=== PATIENT | female | born 1985 | race Caucasian/White ===

== ENCOUNTER 2017-01-31 19:19 | Emergency (ER) | payer OTHER ==
[~2017-01-31] VITALS: Ht 167.6 cm; Wt 63.6 kg
[2017-01-31] MEDS ORDERED: IBUPROFEN 600 MG TABLET PO ONE (20:00)
[2017-01-31 20:37] VITALS: BP 110/64
== END 2017-01-31 21:05 | disposition home or self-care (01) ==
LOC: EMS 19:20
DX: S82.141A Displaced bicondylar fracture of right tibia, initial encounter for closed fracture (principal); F17.210 Nicotine dependence, cigarettes, uncomplicated; F12.90 Cannabis use, unspecified, uncomplicated; F19.90 Other psychoactive substance use, unspecified, uncomplicated; Y04.2XXA Assault by strike against or bumped into by another person, initial encounter; Y93.89 Activity, other specified; Y92.89 Other specified places as the place of occurrence of the external cause; Y99.8 Other external cause status
CPT/HCPCS: 29505; 99284

== ENCOUNTER 2017-02-01 08:10 | Emergency (ER) | payer OTHER ==
[~2017-02-01] VITALS: Ht 162.6 cm; Wt 54.5 kg
[2017-02-01 08:56] LABS: ANION GAP 4 mmol/L (8-16); CALCIUM, TOTAL 8.7 mg/dL (8.8-10.5); CARBON DIOXIDE 29 mmol/L (22-29); CHLORIDE 104 mmol/L (98-107); CREATININE 0.76 mg/dL (0.60-1.30); GLOMERULAR FILTR. RATE CALC > 60 mL/min (>60); POTASSIUM 3.6 mmol/L (3.5-5.1); SODIUM SERUM 137 mmol/L (136-145); UREA NITROGEN, BLOOD 17 mg/dL (7-18)
[2017-02-01 09:03] LABS: ALANINE AMINOTRANSFERASE 23 U/L (12-78); ALBUMIN 3.6 g/dL (3.4-5.0); ASPARTATE AMINOTRANSFERASE 31 U/L (15-37); BILIRUBIN,TOTAL 0.4 mg/dL (0.1-1.0); TOTAL PROTEIN, SERUM 7.2 g/dL (6.4-8.2)
[2017-02-01 09:07] LABS: BASOPHILS % (AUTO) 0.9 % (0.0-2.0); EOSINOPHILS % (AUTO) 2.5 % (1.0-6.0); HEMOGLOBIN 13.5 g/dL (12.0-16.0); LYMPHOCYTES # (AUTO) 1.8 K/uL (1.0-4.8); LYMPHOCYTES % (AUTO) 30.7 % (22.0-44.0); MEAN CORPUSCULAR HEMOGLOBIN 29.7 pg (26.0-34.0); MEAN CORPUSCULAR HGB CONC 33.7 G/dL (31.0-37.0); MEAN CORPUSCULAR VOLUME 88 fL (80-100); MONOCYTES # (AUTO) 0.5 K/uL (0.1-1.0); MONOCYTES % (AUTO) 8.9 % (2.0-9.0); NEUTROPHILS # (AUTO) 3.3 K/uL (1.8-7.7); PLATELET COUNT (AUTO) 342 K/uL (150-450); RED BLOOD CELL COUNT(AUTO) 4.53 MIL/uL (4.00-5.20); RED CELL DISTRIBUTION WIDTH 13.5 % (11.5-14.5); WHITE BLOOD COUNT (AUTO) 5.7 K/uL (4.5-11.0)
[2017-02-01 11:57] VITALS: BP 120/71
[2017-02-01] MEDS ORDERED: HALOPERIDOL 5 MG TABLET PO ONE (12:00)
== END 2017-02-01 12:05 | disposition home or self-care (01) ==
LOC: EMS 08:11
DX: F20.9 Schizophrenia, unspecified (principal); F12.90 Cannabis use, unspecified, uncomplicated; F17.210 Nicotine dependence, cigarettes, uncomplicated; F19.90 Other psychoactive substance use, unspecified, uncomplicated
CPT/HCPCS: 36415; 80053; 80307; 84703; 85025; 99284; 99406; G0480

== ENCOUNTER 2017-02-03 15:40 | Emergency (ER) | payer MEDICAID ==
[~2017-02-03] VITALS: Ht 160 cm; Wt 66.0 kg
[2017-02-03] MEDS ORDERED: IBUP-1506 PO (16:28)
[2017-02-03] MEDS ORDERED: HALO1 PO (16:43)
[2017-02-03 17:10] LABS: BASOPHILS % (AUTO) 1.2 % (0.0-2.0); EOSINOPHILS % (AUTO) 1.2 % (1.0-6.0); HEMATOCRIT 40.7 % (36-46); HEMOGLOBIN 13.8 g/dL (12.0-16.0); LYMPHOCYTES # (AUTO) 2.2 K/uL (1.0-4.8); LYMPHOCYTES % (AUTO) 25.3 % (22.0-44.0); MEAN CORPUSCULAR HGB CONC 33.9 G/dL (31.0-37.0); MEAN CORPUSCULAR VOLUME 88 fL (80-100); MONOCYTES # (AUTO) 0.6 K/uL (0.1-1.0); MONOCYTES % (AUTO) 6.4 % (2.0-9.0); NEUTROPHILS # (AUTO) 5.8 K/uL (1.8-7.7); NEUTROPHILS % (AUTO) 65.9 % (40.0-70.0); PLATELET COUNT (AUTO) 363 K/uL (150-450); RED BLOOD CELL COUNT(AUTO) 4.61 MIL/uL (4.00-5.20); RED CELL DISTRIBUTION WIDTH 13.5 % (11.5-14.5); WHITE BLOOD COUNT (AUTO) 8.7 K/uL (4.5-11.0)
[2017-02-03 17:24] LABS: ANION GAP 5 mmol/L (8-16); CALCIUM, TOTAL 8.6 mg/dL (8.8-10.5); CARBON DIOXIDE 29 mmol/L (22-29); CHLORIDE 104 mmol/L (98-107); CREATININE 0.78 mg/dL (0.60-1.30); GLOMERULAR FILTR. RATE CALC > 60 mL/min (>60); SODIUM SERUM 138 mmol/L (136-145); UREA NITROGEN, BLOOD 17 mg/dL (7-18)
[2017-02-03 17:37] LABS: ALANINE AMINOTRANSFERASE 22 U/L (12-78); ALBUMIN 3.7 g/dL (3.4-5.0); ASPARTATE AMINOTRANSFERASE 17 U/L (15-37); BILIRUBIN,TOTAL 0.2 mg/dL (0.1-1.0); THYROID STIMULATING HORMONE 0.44 uIU/mL (0.36-3.74); TOTAL PROTEIN, SERUM 7.3 g/dL (6.4-8.2)
[2017-02-03 17:39] LABS: B-TYPE NATRIURETIC PEPTIDE 6 pg/mL (0-100)
[2017-02-03 20:59] VITALS: BP 117/79
== END 2017-02-03 21:10 | disposition home or self-care (01) ==
LOC: EMS 15:43
DX: R60.0 Localized edema (principal); S82.141D Displaced bicondylar fracture of right tibia, subsequent encounter for closed fracture with routine healing; F20.9 Schizophrenia, unspecified; F31.9 Bipolar disorder, unspecified; J45.909 Unspecified asthma, uncomplicated; F12.90 Cannabis use, unspecified, uncomplicated; F15.90 Other stimulant use, unspecified, uncomplicated; F17.210 Nicotine dependence, cigarettes, uncomplicated; Z02.89 Encounter for other administrative examinations; X58.XXXD Exposure to other specified factors, subsequent encounter
CPT/HCPCS: 84443; 85379; 93970; 99285

== ENCOUNTER 2017-02-03 15:40 | Inpatient (IN) | payer MEDICAID ==
[~2017-02-03] VITALS: Ht 160 cm; Wt 72.6 kg
[2017-02-03 14:42] VITALS: BP 129/81
[2017-02-03] MEDS ORDERED: IBUP-1506 PO (16:28)
[2017-02-03] MEDS ORDERED: HALO1 PO (16:43)
[2017-02-03 21:50] VITALS: BP 133/84
[2017-02-03] MEDS ORDERED: HALOPERIDOL 5 MG TABLET PO PRN (22:15)
[2017-02-03] MEDS ORDERED: LORazepam 2 MG TABLET PO PRN (22:15)
[2017-02-03] MEDS ORDERED: INFLUENZA VIRUS VACCINE QVS 2017-18 (3YR+)/PF 60 MCG/0.5 ML SYRINGE IM ONE (22:45)
[2017-02-03] MEDS ORDERED: PNEUMOCOCCAL VACCINE POLYVALENT 0.5 ML VIAL [PPSV23] IM ONE (22:45)
[2017-02-04 01:45] VITALS: BP 131/83
[2017-02-04] MEDS: ZOLPIDEM TARTRATE 10 MG TABLET PO PRN ×2 (02:13→21:20)
[2017-02-04] MEDS: IBUPROFEN 400 MG TABLET PO PRN (02:13)
[2017-02-04 06:49] LABS: CHOL/HDL RATIO 3.1 (3.9-5.7)
[2017-02-04 08:30] VITALS: BP 125/65
[2017-02-04 09:10] LABS: APPEARANCE,URINE CLEAR (CLEAR); GLUCOSE, URINE (UA) NEGATIVE (NEGATIVE); KETONES,URINE NEGATIVE (NEGATIVE); LEUKOCYTE ESTERASE ,URINE NEGATIVE (NEGATIVE); OCCULT BLOOD,URINE NEGATIVE (NEGATIVE); PH,URINE 6.5 (5.0-8.0); PROTEIN,URINE NEGATIVE (NEGATIVE)
[2017-02-04 09:12] LABS: ADD UA MICROSCOPIC NO
[2017-02-04 17:02] LABS: ALANINE AMINOTRANSFERASE 21 U/L (12-78); ALBUMIN 3.3 g/dL (3.4-5.0); ANION GAP 11 mmol/L (8-16); ASPARTATE AMINOTRANSFERASE 25 U/L (15-37); BILIRUBIN,TOTAL 0.2 mg/dL (0.1-1.0); CALCIUM, TOTAL 8.5 mg/dL (8.8-10.5); CARBON DIOXIDE 23 mmol/L (22-29); CHLORIDE 103 mmol/L (98-107); CREATININE 0.82 mg/dL (0.60-1.30); GLOMERULAR FILTR. RATE CALC > 60 mL/min (>60); POTASSIUM 3.9 mmol/L (3.5-5.1); SODIUM SERUM 137 mmol/L (136-145); TOTAL PROTEIN, SERUM 6.7 g/dL (6.4-8.2); UREA NITROGEN, BLOOD 21 mg/dL (7-18)
[2017-02-04 20:00] VITALS: BP 124/67
[2017-02-04] MEDS: OLANZapine 5 MG TABLET PO SCH (20:19)
[2017-02-05 03:20] VITALS: BP 121/61
[2017-02-05] MEDS: IBUPROFEN 400 MG TABLET PO PRN (03:24)
[2017-02-05 09:59] VITALS: BP 145/94
[2017-02-05 19:14] VITALS: BP 116/78
[2017-02-05] MEDS: ZOLPIDEM TARTRATE 10 MG TABLET PO PRN (21:01)
[2017-02-05] MEDS: OLANZapine 5 MG TABLET PO SCH (21:02)
[2017-02-06 00:58] VITALS: BP 125/66
[2017-02-06] MEDS: IBUPROFEN 400 MG TABLET PO PRN (01:01)
[2017-02-06 14:10] VITALS: BP 122/78
[2017-02-06 18:56] VITALS: BP 131/75
[2017-02-06] MEDS: OLANZapine 5 MG TABLET PO SCH (20:27)
[2017-02-06] MEDS: ZOLPIDEM TARTRATE 10 MG TABLET PO PRN (20:27)
[2017-02-07 08:15] VITALS: BP 105/58
[2017-02-07 16:00] VITALS: BP 116/67
[2017-02-07] MEDS: ZOLPIDEM TARTRATE 10 MG TABLET PO PRN (20:22)
[2017-02-07] MEDS: OLANZapine 5 MG TABLET PO SCH (20:22)
[2017-02-08 08:13] VITALS: BP 97/67
[2017-02-08 20:08] VITALS: BP 118/77
[2017-02-08] MEDS: OLANZapine 5 MG TABLET PO SCH (20:31)
[2017-02-08] MEDS: ZOLPIDEM TARTRATE 10 MG TABLET PO PRN (20:31)
[2017-02-09 08:00] VITALS: BP 127/62
[2017-02-09 16:48] VITALS: BP 133/73
[2017-02-09] MEDS: OLANZapine 5 MG TABLET PO SCH (20:18)
[2017-02-09] MEDS: ZOLPIDEM TARTRATE 10 MG TABLET PO PRN (21:22)
[2017-02-10 03:49] VITALS: BP 124/75
[2017-02-10 09:32] VITALS: BP 103/67
[2017-02-10 18:44] VITALS: BP 115/69
[2017-02-10] MEDS: OLANZapine 5 MG TABLET PO SCH (20:24)
[2017-02-11 08:30] VITALS: BP 104/59
[2017-02-11] MEDS: OLANZapine 5 MG TABLET PO SCH (20:58)
[2017-02-11 22:49] VITALS: BP 136/75
[2017-02-12 08:14] VITALS: BP 103/62
[2017-02-12] MEDS: FUROSEMIDE 20 MG TABLET PO SCH (10:31)
[2017-02-12 17:02] VITALS: BP 109/63
[2017-02-12] MEDS: OLANZapine 5 MG TABLET PO SCH (20:01)
[2017-02-13 08:00] VITALS: BP 108/70
[2017-02-13] MEDS: FUROSEMIDE 20 MG TABLET PO SCH (08:44)
[2017-02-13 17:00] VITALS: BP 115/64
[2017-02-13] MEDS: OLANZapine 5 MG TABLET PO SCH (20:37)
[2017-02-14 08:00] VITALS: BP 101/61
[2017-02-14] MEDS: FUROSEMIDE 20 MG TABLET PO SCH (09:22)
[2017-02-14 18:58] VITALS: BP 105/68
[2017-02-14] MEDS: OLANZapine 5 MG TABLET PO SCH (21:22)
[2017-02-15 08:00] VITALS: BP 106/66
[2017-02-15] MEDS: FUROSEMIDE 20 MG TABLET PO SCH (09:15)
[2017-02-15 09:25] LABS: ANION GAP 5 mmol/L (8-16); CARBON DIOXIDE 33 mmol/L (22-29); CHLORIDE 103 mmol/L (98-107); CREATININE 0.72 mg/dL (0.60-1.30); GLOMERULAR FILTR. RATE CALC > 60 mL/min (>60); POTASSIUM 4.2 mmol/L (3.5-5.1); SODIUM SERUM 141 mmol/L (136-145); UREA NITROGEN, BLOOD 16 mg/dL (7-18)
[2017-02-15 16:30] VITALS: BP 109/79
[2017-02-15] MEDS: OLANZapine 5 MG TABLET PO SCH (20:26)
[2017-02-16 03:16] VITALS: BP 104/66
[2017-02-16] MEDS: FUROSEMIDE 20 MG TABLET PO SCH (09:19)
[2017-02-16 09:30] VITALS: BP 115/65
[2017-02-16 16:15] VITALS: BP 107/63
[2017-02-16] MEDS: OLANZapine 5 MG TABLET PO SCH (20:42)
[2017-02-17] MEDS ORDERED: OLAN5TAB2 PO (01:13)
[2017-02-17] MEDS ORDERED: FURO20 PO (05:47)
[2017-02-17 06:57] VITALS: BP 109/70
[2017-02-17] MEDS: FUROSEMIDE 20 MG TABLET PO SCH (07:54)
== END 2017-02-17 08:00 | disposition home or self-care (01) | DRG 750 ==
LOC: EDSTATUS 21:16 → 3EI 21:18
PROC: 0QSGXZZ Reposition Right Tibia, External Approach (ICD-10-PCS; principal; 2017-02-06)
DX: F20.0 Paranoid schizophrenia (principal); Z59.0 Homelessness; S82.141A Displaced bicondylar fracture of right tibia, initial encounter for closed fracture; F31.9 Bipolar disorder, unspecified; F10.10 Alcohol abuse, uncomplicated; F15.90 Other stimulant use, unspecified, uncomplicated; F17.200 Nicotine dependence, unspecified, uncomplicated; J45.909 Unspecified asthma, uncomplicated; Z28.21 Immunization not carried out because of patient refusal; W18.39XA Other fall on same level, initial encounter; Y93.89 Activity, other specified; Y92.89 Other specified places as the place of occurrence of the external cause; Y99.8 Other external cause status; Z71.51 Drug abuse counseling and surveillance of drug abuser
CPT/HCPCS: 73700; 80307; 97162; 97530